=== PATIENT | female | born 1965 | race Two or more races ===

== ENCOUNTER 2021-05-10 10:26 | Outpatient (CLI) | payer OTHER | END 2021-05-10 10:31 | disposition home or self-care (01) | LOC: LAB 10:26 | PROVIDERS: ATTEND General Practice | DX: Z12.11 Encounter for screening for malignant neoplasm of colon (principal); E03.9 Hypothyroidism, unspecified; N39.0 Urinary tract infection, site not specified; I11.9 Hypertensive heart disease without heart failure; E55.9 Vitamin D deficiency, unspecified ==

== ENCOUNTER 2021-05-10 12:01 | Outpatient (CLI) | payer OTHER | END 2021-05-10 12:03 | disposition home or self-care (01) | LOC: RAD 12:01 | PROVIDERS: ATTEND Internal Medicine Hematology & Oncology | DX: Z13.820 Encounter for screening for osteoporosis (principal); R05.9 Cough, unspecified ==

== ENCOUNTER 2021-05-16 11:20 | Outpatient (CLI) | payer OTHER | END 2021-05-16 11:21 | disposition home or self-care (01) | LOC: LAB 11:20 | PROVIDERS: ATTEND Internal Medicine Hematology & Oncology | DX: Z12.11 Encounter for screening for malignant neoplasm of colon (principal); E03.9 Hypothyroidism, unspecified; N39.0 Urinary tract infection, site not specified; I11.9 Hypertensive heart disease without heart failure; E55.9 Vitamin D deficiency, unspecified ==

== ENCOUNTER 2021-05-21 09:40 | Outpatient (CLI) | payer OTHER | END 2021-05-21 09:42 | disposition home or self-care (01) | LOC: NUCLEAR 09:40 | PROVIDERS: ATTEND Internal Medicine Hematology & Oncology | DX: M81.0 Age-related osteoporosis without current pathological fracture (principal) ==

== ENCOUNTER 2021-08-01 09:21 | Outpatient (CLI) | payer OTHER | END 2021-08-01 09:22 | disposition home or self-care (01) | LOC: MAMO-SONO 09:21 | PROVIDERS: ATTEND Obstetrics & Gynecology | DX: Z12.31 Encounter for screening mammogram for malignant neoplasm of breast (principal) ==

== ENCOUNTER 2021-09-03 11:13 | Outpatient (CLI) | payer OTHER | END 2021-09-03 11:20 | disposition home or self-care (01) | LOC: RAD 11:13 | PROVIDERS: ATTEND Internal Medicine Rheumatology | DX: M17.0 Bilateral primary osteoarthritis of knee (principal) ==

== ENCOUNTER 2022-03-06 08:35 | Outpatient (CLI) | payer OTHER | END 2022-03-06 08:48 | disposition home or self-care (01) | LOC: MRI 08:35 | PROVIDERS: ATTEND Orthopaedic Surgery | DX: M17.0 Bilateral primary osteoarthritis of knee (principal); M25.551 Pain in right hip; M25.552 Pain in left hip; M25.562 Pain in left knee; M23.92 Unspecified internal derangement of left knee | CPT/HCPCS: 73721 ==

== ENCOUNTER → 2022-06-06 09:14 | Outpatient (CLI) | payer OTHER | END | disposition home or self-care (01) | LOC: LAB 09:14 | PROVIDERS: ATTEND Orthopaedic Surgery | DX: D50.0 Iron deficiency anemia secondary to blood loss (chronic) (principal); E53.9 Vitamin B deficiency, unspecified; D72.818 Other decreased white blood cell count; D64.89 Other specified anemias ==

== ENCOUNTER → 2022-06-10 06:52 | Outpatient (CLI) | payer OTHER | END | disposition home or self-care (01) | LOC: LAB 06:52 | PROVIDERS: ATTEND Orthopaedic Surgery | DX: D50.0 Iron deficiency anemia secondary to blood loss (chronic) (principal); D72.818 Other decreased white blood cell count; D64.89 Other specified anemias ==

== ENCOUNTER 2022-06-28 08:01 | Outpatient (CLI) | payer OTHER | END 2022-06-28 14:50 | disposition home or self-care (01) | LOC: LAB 08:01 | PROVIDERS: ATTEND Orthopaedic Surgery | DX: D64.89 Other specified anemias (principal); M06.4 Inflammatory polyarthropathy ==

== ENCOUNTER 2022-07-17 06:51 | Outpatient (CLI) | payer OTHER | END 2022-07-17 06:52 | disposition home or self-care (01) | LOC: LAB 06:51 | DX: N39.0 Urinary tract infection, site not specified (principal); Z12.11 Encounter for screening for malignant neoplasm of colon; I10 Essential (primary) hypertension; E07.9 Disorder of thyroid, unspecified; R73.9 Hyperglycemia, unspecified ==

== ENCOUNTER 2022-09-02 07:58 | Outpatient (CLI) | payer OTHER | END 2022-09-02 08:06 | disposition home or self-care (01) | LOC: LAB 07:58 | PROVIDERS: ATTEND Orthopaedic Surgery | DX: D64.9 Anemia, unspecified (principal); E88.9 Metabolic disorder, unspecified; D68.8 Other specified coagulation defects; N39.0 Urinary tract infection, site not specified; E11.9 Type 2 diabetes mellitus without complications; Z22.322 Carrier or suspected carrier of Methicillin resistant Staphylococcus aureus; I49.9 Cardiac arrhythmia, unspecified; I10 Essential (primary) hypertension; Z76.89 Persons encountering health services in other specified circumstances ==

== ENCOUNTER 2022-09-05 10:31 | Inpatient (IN) | payer OTHER ==
[~2022-09-05] VITALS: Ht 160 cm; Wt 78.9 kg
[2022-09-05] MEDS ORDERED: GABAPE PO (14:17)
[2022-09-05] MEDS ORDERED: PEPCI PO (14:18)
[2022-09-05] MEDS ORDERED: [UNRECOGNIZED DRUG - OTHER] PO (14:18)
[2022-09-05] MEDS ORDERED: HORIZANT300 MG PO (14:18)
[2022-09-05] MEDS ORDERED: TOPROL XL100 M1 PO (14:19)
[2022-09-10] MEDS ORDERED: DOXEPIN HCL75 MG (08:40)
[2022-09-10] MEDS ORDERED: RISPERIDONE4 MG (08:43)
[2022-09-10] MEDS ORDERED: GABAPENTIN300 M2 (08:43)
[2022-09-10] MEDS ORDERED: FAMOTIDINE40 MG (08:43)
[2022-09-10] MEDS ORDERED: GABAPENTIN800 M1 (08:43)
[2022-09-10] MEDS ORDERED: LAMICTAL150 MG (08:43)
[2022-09-10] MEDS ORDERED: METOPROLOL TAR100 MG (08:44)
[2022-09-10] MEDS ORDERED: CALCIUM 600 MG1 EA10 (08:44)
[2022-09-10] MEDS ORDERED: LOSARTAN POTAS100 MG (08:44)
[2022-09-10] MEDS ORDERED: ATORVASTATIN CA20 MG (08:44)
== END 2022-09-15 06:59 | disposition home or self-care (01) | DRG 470 ==
LOC: SURG 09-10 05:36 → O/R 09-10 05:36 → SURG 09-10 08:30
PROVIDERS: ADMIT Orthopaedic Surgery; ATTEND Orthopaedic Surgery
PROC: 8E0Y0CZ Robotic Assisted Procedure of Lower Extremity, Open Approach (ICD-10-PCS; 2022-09-10)
PROC: 0SRC069 Replacement of Right Knee Joint with Oxidized Zirconium on Polyethylene Synthetic Substitute, Cemented, Open Approach (ICD-10-PCS; principal; 2022-09-10 08:30)
DX: M17.11 Unilateral primary osteoarthritis, right knee (principal); I10 Essential (primary) hypertension; R26.89 Other abnormalities of gait and mobility; D64.9 Anemia, unspecified; R31.9 Hematuria, unspecified
CPT/HCPCS: 27447; S2900

== ENCOUNTER → 2023-01-06 07:37 | Outpatient (CLI) | payer OTHER ==
[~2023-01-06 07:37] MED LIST: ATORVASTATIN CA20 MG; CALCIUM 600 MG1 EA10; DOXEPIN HCL75 MG; FAMOTIDINE40 MG; GABAPE PO; GABAPENTIN300 M2; GABAPENTIN800 M1; HORIZANT300 MG PO; LAMICTAL150 MG; LOSARTAN POTAS100 MG; METOPROLOL TAR100 MG; PEPCI PO; RISPERIDONE4 MG; TOPROL XL100 M1 PO; [UNRECOGNIZED DRUG - OTHER] PO
[2023-01-06 08:17] LABS: HEMATOCRIT 35.9 % (36.0-45.00); HEMOGLOBIN 11.8 g/dL (12.0-15.00); MEAN CELL VOLUME 80.2 fL (80.00-100.00); MEAN CORPUSCULAR HEMOGLOBIN 26.5 pg (27.00-32.0); PLATELET COUNT 199 K/uL (150-450); RED BLOOD COUNT 4.47 M/uL (4.00-6.00); RED CELL DISTRIBUTION WIDTH 14.8 % (11.5-14.5)
[2023-01-06 08:23] LABS: ERYTHROCYTE SEDIMENTATION RATE 11 mm/hr
[2023-01-06 09:34] LABS: FERRITIN 57.9 NG/ML (8-252); FREE TRIODOTIRONINE 2.77 pg/ml (2.18-3.98); T4 FREE 1.02 NG/ML (0.76-1.46); TSH 1.28 uIU/mL (0.358-3.74)
[2023-01-06 11:44] LABS: PLATELET ESTIMATE NORMAL (NORMAL)
== END | disposition home or self-care (01) ==
LOC: LAB 07:37
PROVIDERS: ATTEND Internal Medicine Hematology & Oncology
DX: D50.8 Other iron deficiency anemias (principal); D57.3 Sickle-cell trait; K90.0 Celiac disease; E03.8 Other specified hypothyroidism; K92.2 Gastrointestinal hemorrhage, unspecified

== ENCOUNTER 2023-01-10 07:24 | Outpatient (CLI) | payer OTHER ==
[2023-01-10 10:17] LABS: ob NEGATIVE (NEGATIVE)
== END 2023-01-10 07:26 | disposition home or self-care (01) ==
LOC: LAB 07:24
PROVIDERS: ATTEND Internal Medicine Hematology & Oncology
DX: D57.3 Sickle-cell trait (principal); K90.0 Celiac disease; E03.8 Other specified hypothyroidism; D55.0 Anemia due to glucose-6-phosphate dehydrogenase [G6PD] deficiency; K92.2 Gastrointestinal hemorrhage, unspecified; D50.8 Other iron deficiency anemias

== ENCOUNTER 2023-02-27 07:09 | Outpatient (CLI) | payer OTHER | END 2023-02-27 07:18 | disposition home or self-care (01) | LOC: MRI 07:09 | PROVIDERS: ATTEND Obstetrics & Gynecology | DX: R19.09 Other intra-abdominal and pelvic swelling, mass and lump (principal) | CPT/HCPCS: 72197; Q9965; 72196 ==

== ENCOUNTER 2023-06-24 07:48 | Outpatient (CLI) | payer OTHER ==
[~2023-06-24 07:48] MED LIST changes: +NABUMETONE750 MG PO
== END 2023-06-24 07:56 | disposition home or self-care (01) ==
LOC: MAMO-SONO 07:48
PROVIDERS: ATTEND General Practice
DX: N64.89 Other specified disorders of breast (principal); R05.9 Cough, unspecified; Z12.31 Encounter for screening mammogram for malignant neoplasm of breast

== ENCOUNTER 2023-10-07 08:59 | Outpatient (CLI) | payer OTHER | END 2023-10-07 09:09 | disposition home or self-care (01) | LOC: SONOGRAMA 08:59 | PROVIDERS: ATTEND Internal Medicine Hematology & Oncology | DX: C22.7 Other specified carcinomas of liver (principal); D70.8 Other neutropenia ==

== ENCOUNTER 2023-11-20 07:50 | Outpatient (CLI) | payer OTHER | END 2023-11-20 07:55 | disposition home or self-care (01) | LOC: LAB 07:50 | PROVIDERS: ATTEND Orthopaedic Surgery | DX: E55.9 Vitamin D deficiency, unspecified (principal); M85.9 Disorder of bone density and structure, unspecified; E56.1 Deficiency of vitamin K ==

== ENCOUNTER 2024-02-17 07:16 | Outpatient (CLI) | payer OTHER ==
[2024-02-17 07:47] LABS: HEMATOCRIT 36.3 % (36.0-45.00); HEMOGLOBIN 12.3 g/dL (12.0-15.00); MEAN CELL VOLUME 80.1 fL (80.00-100.00); MEAN CORPUSCULAR HEMOGLOBIN 27.2 pg (27.00-32.0); PLATELET COUNT 166 K/uL (150-450); RED BLOOD COUNT 4.54 M/uL (4.00-6.00); RED CELL DISTRIBUTION WIDTH 14.2 % (11.5-14.5)
[2024-02-17 08:47] LABS: BILIRUBIN TOTAL 0.53 mg/dL (0.3-1.2); CALCIUM 9.7 mg/dL (8.5-10.1); CREATININE SERUM 0.79 mg/dL (0.55-1.02); GFR 75.01; GLOBULINA 2.7 G/DL (2.4-3.5); POTASSIUM 4.78 mEq/L (3.5-5.1); TOTAL PROTEIN 6.7 gm/dL (6.4-8.2)
== END 2024-02-17 07:17 | disposition home or self-care (01) ==
LOC: LAB 07:16
PROVIDERS: ATTEND Internal Medicine Hematology & Oncology
DX: D70.8 Other neutropenia (principal); D18.03 Hemangioma of intra-abdominal structures; R74.01 Elevation of levels of liver transaminase levels; C22.0 Liver cell carcinoma; C25.0 Malignant neoplasm of head of pancreas

== ENCOUNTER 2024-06-10 09:31 | Outpatient (CLI) | payer OTHER | END 2024-06-10 09:35 | disposition home or self-care (01) | LOC: SONOGRAMA 09:31 | PROVIDERS: ATTEND Internal Medicine Gastroenterology | DX: R10.9 Unspecified abdominal pain (principal); D18.03 Hemangioma of intra-abdominal structures; K80.20 Calculus of gallbladder without cholecystitis without obstruction ==

== ENCOUNTER 2025-01-03 07:45 | Outpatient (CLI) | payer OTHER | END 2025-01-03 07:48 | disposition home or self-care (01) | LOC: MAMO-SONO 07:45 | PROVIDERS: ATTEND General Practice | DX: N64.4 Mastodynia (principal); N64.89 Other specified disorders of breast; Z12.31 Encounter for screening mammogram for malignant neoplasm of breast ==

== ENCOUNTER 2025-02-14 07:08 | Outpatient (CLI) | payer OTHER ==
[2025-02-14 07:50] LABS: BASO % 0.6 % (0.1-1.2); EOS # 0.00 (0.04-0.54); EOS % 0.0 % (0.7-7.0); LYMPH # 1.70 (1.18-3.74); LYMPH % 47.8 % (19.3-53.1); MEAN PLATELET VOLUME 11.40 fl (9.4-12.4); MONO # 0.39 (0.24-0.82); MONO % 11.0 % (4.7-12.5); NEUT # 1.45 (1.56-6.13); NEUT % 40.6 % (34.0-71.1); RED CELL DISTRIBUTION WIDTH 14.2 % (11.6-14.4)
[2025-02-14 08:37] LABS: ALT/SGPT 36 U/L (12-78); AST/SGOT 24 U/L (15-37); BILIRUBIN TOTAL 0.66 mg/dL (0.3-1.2); BUN CREA RATIO 19 (7.0-25.0); CHOL HDL RATIO 4.3 (0-5.0); CREATININE SERUM 0.85 mg/dL (0.55-1.02); GFR 68.69; GLOBULINA 3.2 G/DL (2.4-3.5); GLUCOSE FASTING 94 mg/dL (65-100); HDL 40 mg/dl (40-60); OSMOLALITY SERUM 291 MOSM/KG (275-295)
[2025-02-14 09:23] LABS: LDL 91 mg/dl (0-130); VLDL 42 (0-39)
[2025-02-14 09:24] LABS: TSH < 0.005 uIU/mL (0.358-3.74)
== END 2025-02-14 07:14 | disposition home or self-care (01) ==
LOC: LAB 07:08
PROVIDERS: ATTEND Internal Medicine Hematology & Oncology
DX: D70.4 Cyclic neutropenia (principal); I10 Essential (primary) hypertension; E78.00 Pure hypercholesterolemia, unspecified; E03.9 Hypothyroidism, unspecified